=== PATIENT | female | born 1985 | race Caucasian/White ===

== ENCOUNTER 2025-07-05 23:12 | Emergency (ER) | payer MEDICAID, SELFPAY ==
--- NOTE | 2025-07-05 23:13 | EKG_ITS ---
[facility] (Formerly [facility]) Test Date: 2025-07-05 Pat Name: DERECK BLUE Department: Room: - Gender: Female Chief Port Director: : 1985 Requested By: ED Temporary Provider Order Number: [id number] Reading MD: ED Temporary Provider Measurements Intervals [place] Rate: 100 P: 56 MT: 154 QRS: 8 QRSD: 104 T: 67 QT: 363 QTc: 470 Interpretive Statements SINUS TACHYCARDIA NONSPECIFIC T-WAVE ABNORMALITY ABNORMAL RHYTHM ECG Compared to ECG 06/23/2022 21:15:52 Sinus rhythm no longer present Incomplete right bundle-branch block no longer present T-wave abnormality still present /store/S0/[id number].pdf
[2025-07-05 23:14] VITALS: BP 116/77; PULSE 96; RESP 17; TEMP 36.9; O2SAT 99
[2025-07-05 23:15] VITALS: PULSE 97; RESP 16; O2SAT 97; BMI 28.0
--- NOTE | 2025-07-05 23:29 | PD.EDOVER ---
ED Overdose RME/HPI General Chief Complaint: Overdose Stated Complaint: SEIZURE Time Seen by Provider: 07/05/25 23:31 Arrival date/time: 07/05/25 23:12 RME / HPI RME / HPI Narrative: Dr. Harrison?s Main ED Evaluation: 40yo female with a history of seizures, anxiety BIBA from home presents to the ED for a possible overdose. Per EMS, patient was having intermittent seizures throughout tonight. Patient states she was feeling generally unwell tonight, so she took 2 tablets of her Xanax 2mg PO to help her sleep it off. She was walking when she felt tired and fell, hitting her head. Patient does not have any medical complaints at this time. Denies any headache, neck pain, chest pain, abdominal pain, extremity pain, or any other associated symptoms. She does follow-up with a psychologist. Patient is also on trazadone and uses THC oil to help her sleep. NKA. Related Data Home Medications ?Medication ?Instructions ?Recorded ?Confirmed alprazolam 2 mg tablet 2 mg PO TID 07/11/22 07/11/22 duloxetine 30 mg capsule,delayed 30 cap PO DAILY 07/11/22 07/11/22 release ferrous sulfate 325 mg (65 mg 1 tab PO DAILY 07/11/22 07/11/22 iron) tablet lamotrigine 25 mg tablet mg 07/11/22 trazodone 150 mg tablet 150 mg PO HS 07/11/22 07/11/22 Previous Rx's ?Medication ?Instructions ?Recorded buprenorphine 8 mg-naloxone 2 mg 1 film buccal QDAY #30 ea 07/06/25 sublingual film (Suboxone) Allergies Allergy/AdvReac Type Severity Reaction Status Date / Time No Known Allergies Allergy Verified 07/05/25 23:14 Review of Systems Review of Systems Systems Reviewed: All systems reviewed, normal except as documented Past Medical History Past Medical History NEUROLOGIC: Positive Seizures CARDIAC: Negative Cardiac Disorders or Congestive Heart Failure RESPIRATORY: Negative Chronic Obstructive Pulmonary Disease (COPD) or Asthma GENITOURINARY: Negative Renal Disease REPRODUCTIVE: Positive Previous Pregnancies MUSCULOSKELETAL: Positive Musculoskeletal Disorders ENDOCRINE: Negative Diabetes Mellitus Type 1 or Diabetes Mellitus Type 2 HEMATOLOGIC: Positive Anemia; Negative Sickle Cell Disease PSYCHO/SOCIAL: Positive Anxiety Surgical History SURGICAL: Positive Abdominal Surgery, Gastric Bypass Surgery and Section Social History SMOKING STATUS: Current every day smoker ED Exam Narrative Physical exam: Generally patient is sleeping but easily arousable and becomes oriented x 4, head shows the patient have slight swelling over the right eyebrow. No laceration., Neck shows no midline tenderness and nontender to head compression., Heart regular rate and rhythm, lungs clear to auscultation equal bilaterally, abdomen soft bowel sounds present all send nontender, neurologic exam no focal motor or sensory deficits. Nerves II through XII grossly intact no ataxia with Mason Coma Scale of 15 Course Quality Measures none Orders Category Date Time Status Bedside Blood Glucose NOW Care 07/05/25 23:22 Active EKG (ED ONLY) *Do not use* NOW Care 07/05/25 23:13 Completed EKG (ED Only) Stat Exams 07/05/25 23:13 Draft Vital Signs Vital signs: Vital Signs Temperature 98.5 F 07/05/25 23:14 Pulse Rate 96 07/05/25 23:14 Respiratory Rate 17 07/05/25 23:14 Blood Pressure 116/77 07/05/25 23:14 Pulse Oximetry (%) 99 07/05/25 23:14 Oxygen Delivery Method Room Air 07/05/25 23:14 Overdose MDM Narrative MDM Narrative:: Scribe Attestation: 07/05/25 - Shabnam Wagner am scribing for and in the presence of Dr. Harrison. I had a long talk with the patient and her mother who is at bedside. The mother believes and the patient admits to most likely taking more Xanax than she should. There is a prescription at bedside with an empty bottle that was dated June 11 which is under a month ago and there were 90 tablets and the patient was only supposed to be taking it 3 times a day. Patient also takes trazodone and Lexapro as well as CBD oil to help her sleep. She is followed by a psychiatrist. She denies suicidal or homicidal ideation. Patient data External records reviewed:: [facility] previous records (Per chart review, patient was seen here on 07/13/22 for benzodiazepine abuse.) and EMS form Clinical information provided by:: patient Social determinants that could affect healthcare access:: substance use Patient has the following chronic illnesses:: seizures How is presenting disease/condition affected by chronic disease/condition?: uneffected by Evaluation data The following diagnostics were reviewed and interpreted by me:: EKG tracing(s) Lab and/or radiology exams considered but not ordered:: none Interpretation Summary: See MDM Medications / Prescriptions Medications or Prescriptions considered but not ordered:: none Medication administrations:: none Consultations Consultation(s) initiated? (list below): No Diagnosis Overdose Differential Diagnosis: other (See MDM) Most likely diagnosis given after review of the tests above:: see clinical impression below Admission Indicated Admission indicated?: not indicated Admission Request Was there a request for admission?: No Disposition Plan Disposition Plan: Discharge Discharge Attestation Discharge Attestation: The patient and all family members were given an opportunity to ask questions and understood the discharge instructions. Discharge instructions specifically effects, indications for sooner follow up or return to the emergency department, and the expected course of current diagnosis. Patient condition: Stable Discharge Plan Plan Patient Disposition: HOME (Self Care) Prescriptions/Referrals Prescriptions/Med Rec: New buprenorphine-naloxone [Suboxone] 8-2 mg film 1 film buccal QDAY Qty: 30 0RF No Action lamotrigine 25 mg tablet Patient Comments: TAKE 1 TABLET BY MOUTH EVERY DAY FOR 2 WEEKS THEN 1 TAB BY MOUTH TWICE A DAY FOR 2 WEEKS trazodone 150 mg tablet 150 mg PO HS Patient Comments: TAKE 1 TABLET BY MOUTH EVERYDAY AT BEDTIME ferrous sulfate 325 mg (65 mg iron) tablet 1 tab PO DAILY alprazolam 2 mg tablet 2 mg PO TID duloxetine 30 mg capsule,delayed release(DR/EC) 30 cap PO DAILY Patient Comments: TAKE 1 CAPSULE BY MOUTH EVERY DAY Problem List Clinical Impression: Benzodiazepine overdose Patient/Caregiver Discharge Instructions Additional Instructions: Take medication only as prescribed. Follow-up with your psychiatrist. Print Language: Pashto Stand Alone Forms: [facility]ita Award Info., Patient Portal Info Letter
[2025-07-06 00:15] VITALS: BP 101/76; PULSE 88; RESP 16; TEMP 36.8; O2SAT 100
== END 2025-07-06 00:15 | disposition home or self-care (01) ==
LOC: SERX 07-06 00:17
PROVIDERS: Emergency Provider Emergency Medicine; PCP Family Medicine
DX: T42.4X1A Poisoning by benzodiazepines, accidental (unintentional), initial encounter (principal); R00.0 Tachycardia, unspecified; R56.9 Unspecified convulsions
CPT/HCPCS: 93005; 96127; 99283